=== PATIENT | female | born 1990 | race Caucasian/White ===

== ENCOUNTER 2016-11-29 14:44 | Inpatient (IN) | payer MEDICAID ==
[~2016-11-29] VITALS: Ht 154.9 cm; Wt 58.5 kg
[~2016-11-29 14:44] MED LIST: NAPR550 PO; PREN0.01 PO
[2016-11-29] MEDS ORDERED: LACTATED RINGER'S 1000 ML INJ 1,000 ML IV SCH (15:20)
[2016-11-29] MEDS ORDERED: LACTATED RINGER'S 1000 ML INJ 1,000 ML IV PRN (15:20)
[2016-11-29] MEDS ORDERED: CITRIC ACID-SODIUM CITRATE LIQ 30 ML UDC PO SCH (15:30)
[2016-11-29] MEDS ORDERED: OXYTOCIN 30 UNITS-500ML PREMIX 500 ML IV ONE (15:30)
[2016-11-29] MEDS ORDERED: SODIUM CHLORID 0.9% 500 ML INJ 500 ML IV PRN (15:30)
[2016-11-29] MEDS ORDERED: LIDOCAINE HCL 1% 50 ML VIAL I-DERMAL PRN (15:30)
[2016-11-29] MEDS ORDERED: PENICILLIN G POTASSIUM INJ 5,000,000 UNITS in SODIUM CHLORIDE 0.9% INJ 100 ML IV ONE (15:30)
[2016-11-29] MEDS ORDERED: MINERAL OIL 10 ML VIAL TOPICAL PRN (15:30)
[2016-11-29] MEDS ORDERED: ONDANSETRON HCL 4 MG/2 ML VIAL IV PRN (15:30)
[2016-11-29] MEDS ORDERED: LIDOCAINE HCL 1% 50 ML VIAL INFIL PRN (15:30)
[2016-11-29] MEDS ORDERED: SODIUM CHLOR 0.9% 1000 ML INJ 1,000 ML IV PRN (15:40)
[2016-11-29 15:46] LABS: BACTERIA, URINE OCC /hpf; BLOOD, URINE NEG (NEG); GLUCOSE,URINE NEG (NEG); KETONE, URINE NEG (NEG); MUCUS URINE FEW /lpf (OCC); NITRITE,URINE NEG (NEG); SQUAMOUS EPITHELIAL CELL URINE 1 /hpf (0-5); URINE COLOR YELLOW (YELLW/STRAW)
[2016-11-29 15:47] LABS: COMMENT (UR) CULT NOT INDICATED; CULTURE IF INDICATED CULT NOT INDICATED
--- NOTE | 2016-11-29 15:47 | PD ---
History of Present Illness Date Seen: Nov 29, 2016 History of Present Illness HPI Chief Complaint Pt is a 26 yo with EDC 12-23-2016 based on US EDC at 5 months. Pt presents with contractions. Exam reveals cervix to be dilated 5cm. No ruptured membranes. No vaginal bleeding. Active movements. Date Seen: Nov 29, 2016 Travel History International Travel<30 Days: No Contact w/Intl Traveler<30Days: No History of Present Illness HPI Pt is a 26 yo who presents with contractions. EDC is 12-23-2016 based on 5 month ultrasound. She denies ruptured membranes or vaginal bleeding. Active movements. No fevers. We do have a record of GBS status Para: 2 : 4 Last Menstrual Period: Mar 04, 2016 History Obstetric History Obstetric History 2 previous uncomplicated pregnancies that went to term, and delivered vaginally. This uncomplicated to date. Past Surgical History Surgical History: No Previous Surgery Family History Family History: Negative Social History Alcohol Use: No Tobacco Use: No Substance Abuse: No Allergies-Medications (Allergen,Severity, Reaction): Coded Allergies: No Known Allergies (Unverified , 09/21/13) Home Meds Active Scripts Sulfamethoxazole-Trimethoprim DS (Bactrim DS)1 Tab Tab1 1 PO twice a day #6 Prov:Rudy Wyatt DO 09/21/13 Review of Systems Except as stated in HPI: all other systems reviewed are Neg Physical Exam Narrative GENERAL: Well-nourished, well-developed patient. SKIN: Warm and dry. HEAD: Normocephalic and atraumatic. EYES: No scleral icterus. No injection or drainage. ENT: No nasal drainage noted. Mucous membranes pink. Airway patent. NECK: Supple, trachea midline. No JVD. CARDIOVASCULAR: Regular rate and rhythm without murmurs, gallops, or rubs. RESPIRATORY: Breath sounds equal bilaterally. No accessory muscle use. BREASTS: Bilateral exam showed no masses , no retractions, no nipple discharge. ABDOMEN/GI: Abdomen soft, non-tender, bowel sounds present, no rebound, no guarding Gravid to [-] weeks size Fundal Height: [-] GENITOURINARY: External Genitalia: intact and normal in appearance BUS glands: [-] Cervix: [-] Dilatation: [-] Effacement: [-] Station: [-] Presentation: [-] Membranes: [intact or ruptured] Uterine Contractions: [-] FHT's: Category: [-] Baseline: [-] Reactive: [-] Variability: [-] Decels: [-] EXTREMITIES: No cyanosis or edema. BACK: Nontender without obvious deformity. No CVA tenderness. NEUROLOGICAL: Awake and alert. Motor and sensory grossly within normal limits. Five out of 5 muscle strength in all muscle groups. Normal speech. Data Data Vital Signs Reviewed: Yes [facility] Medical Record Reviewed: Yes Plan Pt is 36 weeks and 4 days, with advanced cervical dilatation. We will admit for labor. We will give GBS prophylaxis in the absence of documented GBS status. Expectant. Pt plans epidural,. Diagnosis Diagnosis: Primary Impression: Intrauterine normal Note Completed By Dr. Brizuela, transferred by Martin Blas MD R1 Nov 29, 2016 15:47
[2016-11-29] MEDS ORDERED: DIPHTH/TETANUS/ACEL PERTUSSIS (BOOSTER) 0.5 ML VIAL/PFS IM ONE ×2 (16:00)
[2016-11-29] MEDS ORDERED: MEASLES, MUMPS, RUBELLA VACCINE 0.5 ML VIAL SQ ONE (16:00)
--- NOTE | 2016-11-29 16:10 | HHI.HP ---
History & Physical H&P History of Present Illness Date Seen: Nov 29, 2016 History of Present Illness HPI Chief Complaint Pt is a 26 yo with EDC 12-23-2016 based on US EDC at 5 months. Pt presents with contractions and reported loss of fluid. Exam reveals cervix to be dilated 5cm. No ruptured membranes. No vaginal bleeding. Active movements. Date Seen: Nov 29, 2016 Travel History International Travel<30 Days: No Contact w/Intl Traveler<30Days: No History of Present Illness HPI Pt is a 26 yo who presents with contractions. EDC is 12-23-2016 based on 5 month ultrasound. She denies ruptured membranes or vaginal bleeding. Active movements. No fevers. We do have a record of GBS status Para: 2 : 4 Last Menstrual Period: Mar 04, 2016 History Obstetric History Obstetric History 2 previous uncomplicated pregnancies that went to term, and delivered vaginally. This uncomplicated to date. Past Surgical History Surgical History: No Previous Surgery Family History Family History: Negative Social History Alcohol Use: No Tobacco Use: No Substance Abuse: No Allergies-Medications (Allergen,Severity, Reaction): Coded Allergies: No Known Allergies (Unverified , 09/21/13) Home Meds Active Scripts Sulfamethoxazole-Trimethoprim DS (Bactrim DS)1 Tab Tab1 1 PO twice a day #6 Prov:Rudy Wyatt DO 09/21/13 Review of Systems Except as stated in HPI: all other systems reviewed are Neg Physical Exam Narrative GENERAL: Well-nourished, well-developed patient. SKIN: Warm and dry. HEAD: Normocephalic and atraumatic. EYES: No scleral icterus. No injection or drainage. ENT: No nasal drainage noted. Mucous membranes pink. Airway patent. NECK: Supple, trachea midline. No JVD. CARDIOVASCULAR: Regular rate and rhythm without murmurs, gallops, or rubs. RESPIRATORY: Breath sounds equal bilaterally. No accessory muscle use. BREASTS: Bilateral exam showed no masses , no retractions, no nipple discharge. ABDOMEN/GI: Abdomen soft, non-tender, bowel sounds present, no rebound, no guarding Gravid to 36 weeks size GENITOURINARY: External Genitalia: intact and normal in appearance Cervix: Midposition Dilatation: 5-6 Effacement: 90 Station: -1 Membranes: Intact Uterine Contractions: Q2-3m FHT's: Category: 1 Baseline: 150 Reactive: + Variability: Moderate Decels: None EXTREMITIES: No cyanosis or edema. BACK: Nontender without obvious deformity. No CVA tenderness. NEUROLOGICAL: Awake and alert. Motor and sensory grossly within normal limits. Five out of 5 muscle strength in all muscle groups. Normal speech. Data Data Vital Signs Reviewed: Yes [facility] Medical Record Reviewed: Yes Plan Ms. Gonzalez is a 26 y/o who is 36 weeks and 4 days presenting with contractions and cervical dilation 1, IUP -Admit for labor. Orders placed -Continue routine OB care -Patient would like epidural anesthesia -Membranes intact with negative amnisure per report 2. GBS status unknown -GBS prophylaxis ordered -Hold off on AROM until treated x2 with Pen G Diagnosis Diagnosis: Primary Impression: Intrauterine normal (Martin Carpenter MD R1) Martin Carpenter MD R1 Nov 29, 2016 16:10 Jemal Brizuela MD Nov 29, 2016 18:48
[2016-11-29 16:38] LABS: AUTOMATED NEUTROPHIL # 6.3 TH/MM3 (1.8-7.7); BASOPHIL % 0.2 % (0.0-2.0); EOSINOPHIL % 0.1 % (0.0-4.0); HEMATOCRIT 37.7 % (35.0-46.0); HEMO FLAGS DIFF FINAL; LYMPH % 21.8 % (9.0-44.0); MEAN CELL VOLUME 88.8 FL (80.0-100.0); MEAN CORPUSCULAR HEMOGLOBIN 29.3 PG (27.0-34.0); MONO % 8.4 % (0.0-8.0); NEUT % 69.5 % (16.0-70.0); PLATELET COUNT 139 TH/MM3 (150-450); RED BLOOD COUNT 4.25 MIL/MM3 (4.00-5.30); WHITE BLOOD COUNT 9.1 TH/MM3 (4.0-11.0)
--- NOTE | 2016-11-29 18:15 | PD.OB.ANTE ---
Subjective Interval History Pt in labor. Making spontaneous cervical change. Pt 8-9cm last check. Uncomfortable with contractions. Objective Lab & Micro Results Test 11/29/16 11/29/16 14:40 15:40 Urine Color YELLOW Urine Turbidity CLEAR Urine pH 7.0 Urine Specific [place] 1.013 Urine Protein NEG mg/dL Urine Glucose (UA) NEG mg/dL Urine Ketones NEG mg/dL Urine Occult Blood NEG Urine Nitrite NEG Urine Bilirubin NEG Urine Urobilinogen LESS THAN 2.0 MG/DL Urine Leukocyte Esterase NEG Urine RBC 1 /hpf Urine WBC LESS THAN 1 /hpf Urine Squamous Epithelial 1 /hpf Cells Urine Bacteria OCC /hpf Urine Mucus FEW /lpf Microscopic Urinalysis Comment CULT NOT INDICATED White Blood Count 9.1 TH/MM3 Red Blood Count 4.25 MIL/MM3 Hemoglobin 12.5 GM/DL Hematocrit 37.7 % Mean Corpuscular Volume 88.8 FL Mean Corpuscular Hemoglobin 29.3 PG Mean Corpuscular Hemoglobin 33.0 % Concent Red Cell Distribution Width 17.0 % Platelet Count 139 TH/MM3 Mean Platelet Volume 11.0 FL Neutrophils (%) (Auto) 69.5 % Lymphocytes (%) (Auto) 21.8 % Monocytes (%) (Auto) 8.4 % Eosinophils (%) (Auto) 0.1 % Basophils (%) (Auto) 0.2 % Neutrophils # (Auto) 6.3 TH/MM3 Lymphocytes # (Auto) 2.0 TH/MM3 Monocytes # (Auto) 0.8 TH/MM3 Eosinophils # (Auto) 0.0 TH/MM3 Basophils # (Auto) 0.0 TH/MM3 CBC Comment DIFF FINAL Differential Comment Blood Type A POSITIVE Band and Hold HOLD CLOT IN BB Physical Exam GENERAL: Well-nourished, well-developed patient. CARDIOVASCULAR: Regular rate and rhythm without murmurs, gallops, or rubs. RESPIRATORY: Breath sounds equal bilaterally. No accessory muscle use. ABDOMEN/GI: Abdomen soft, non-tender. Fundus: [-] GENITOURINARY: External Genitalia: intact and normal in appearance Cervix: [-] Dilatation: [9cm-] Effacement: [-100%]Bulging membranes. AROM done with [place], clear fluid Station: [0 station-] Presentation: [-] Membranes: [-] Uterine Contractions: [-] FHT's: Category: [-] Baseline: [-] Reactive: [-] Variability: [-] Decels: [-] EXTREMITIES: No cyanosis or edema, non-tender, without signs of DVT. Assessment and Plan Assessment and Plan Term labor Imminent delivery. Cervical exam was thin rim , post AROM. Expectant Jemal Brizuela MD Nov 29, 2016 18:14
--- NOTE | 2016-11-29 18:26 | PD.OB.DELI ---
Delivery Date: Nov 29, 2016 Anesthesia: None Episiotomy: None Vaginal Delivery: Normal Presentation: Occiput anterior Nuchal Cord: x1 Delayed cord clamping (45 sec): Yes : Female One Minute : 9 Five Minute : 9 Weight: [id number] Placenta: Spontaneous delivery Additional Information Patient was checked and found to be 8cm dilated with bulging bag. Bag was ruptured and progressed to full dilation. Baby was then precipitously delivered with bed intact. Baby delivered without complication. Nuchal cord x1 which was retracted manually. Cord was clamped and blood was obtained. Placenta was then delivered without complication spontaneously. APGARs 9/9. No vaginal lacerations on exam post delivery. Mom and baby currently resting comfortably in room. SDW: Dr. Alvaro Ansari (Martin Carpenter MD R1) Delivery Date: Nov 29, 2016 Anesthesia: None Episiotomy: None Vaginal Delivery: Precipitous Presentation: Occiput anterior Nuchal Cord: x1 Delayed cord clamping (45 sec): Yes Infant: Female One Minute : 9 Five Minute : 9 Placenta: Spontaneous delivery Laceration: No lacerations (Jemal Brizuela MD) Martin Carpenter MD R1 Nov 29, 2016 18:26 Jemal Brizuela MD Nov 29, 2016 18:42
[2016-11-29] MEDS ORDERED: ACETAMINOPHEN 325 MG TAB PO PRN ×2 (18:30→18:45)
[2016-11-29] MEDS ORDERED: DOCUSATE SODIUM 50 MG/SENNA 8.6 MG TAB PO PRN (18:30)
[2016-11-29] MEDS ORDERED: ZOLPIDEM TARTRATE 5 MG TAB PO PRN (18:30)
[2016-11-29] MEDS ORDERED: SODIUM CHLORIDE 0.9% FLUSH 10 ML FLUSH IV FLUSH PRN ×2 (18:30→18:45)
[2016-11-29] MEDS ORDERED: ALUMINUM/MAGNESIUM/SIMETH 30 ML CUP PO PRN (18:30)
[2016-11-29] MEDS ORDERED: BENZOCAINE 20% TOPICAL SPRAY 60 ML CAN TOPICAL PRN (18:30)
[2016-11-29] MEDS ORDERED: ONDANSETRON ODT 4 MG TAB PO PRN (18:45)
[2016-11-29] MEDS ORDERED: IBUPROFEN 600 MG TAB PO PRN (18:45)
[2016-11-29] MEDS: WITCH HAZEL 50%/GLYCERIN 12.5% 40 PAD JAR TOPICAL PRN (19:28)
[2016-11-29] MEDS: IBUPROFEN 600 MG TAB PO PRN (19:28)
[2016-11-29] MEDS ORDERED: PENICILLIN G POTASSIUM INJ 2,500,000 UNITS in SODIUM CHLORIDE 0.9% INJ 100 ML IV SCH (20:00)
[2016-11-29] MEDS ORDERED: SODIUM CHLORIDE 0.9% FLUSH 10 ML FLUSH IV FLUSH SCH ×2 (21:00)
[2016-11-29 21:53] VITALS: BP 106/69; PULSE 54; RESP 16; TEMP 98.1
[2016-11-30 08:45] VITALS: BP 143/59; PULSE 69; RESP 18; TEMP 98
[2016-11-30] MEDS: WITCH HAZEL 50%/GLYCERIN 12.5% 40 PAD JAR TOPICAL PRN (09:06)
[2016-11-30] MEDS: IBUPROFEN 600 MG TAB PO PRN (09:06)
--- NOTE | 2016-11-30 10:46 | HHI.OB ---
Subjective Post Day: 1 Remarks Pt seen and examined this morning. Of note patient is primarily Hungarian- speaking. day # 1 AFVSS overnight. Decreased lochia. Denies dysuria. No breast tenderness. She is feeding the baby via breast. Appetite good. No nausea or vomiting. Patient endorses bowel movement overnight. Ambulating well. Denies calf pain or shortness of breath. Otherwise, she is doing well this morning and has no other concerns. Objective Vitals/I&O Vital Signs Date Time Temp Pulse Resp B/P Pulse Ox O2 Delivery O2 Flow Rate FiO2 11/30/16 08:45 69 143/59 11/30/16 08:45 98.0 18 11/29/16 21:53 98.1 54 16 106/69 Objective Remarks GENERAL: Well-nourished, well-developed patient. CARDIOVASCULAR: Regular rate and rhythm without murmurs, gallops, or rubs. RESPIRATORY: Breath sounds equal bilaterally. No accessory muscle use. ABDOMEN/GI: Abdomen soft, non-tender. Fundus: Firm, non-tender at umbilicus. GENITOURINARY: Light to moderate bleeding. EXTREMITIES: No cyanosis or edema, non-tender, without signs of DVT. Medications and IVs Current Medications Medications (Trade) Dose Ordered Sig/Johnny Route Start Time Stop Time Status Last Admin Lactated Ringer's 1,000 ml @ 125 mls/hr Q8H IV 11/29/16 15:20 11/29/16 16:00 Lactated Ringer's 1,000 ml @ 3,000 mls/hr Q20M PRN IV 11/29/16 15:20 (NS 1000 ml Inj) 1,000 ml @ 100 mls/hr Q10H PRN IV 11/29/16 15:40 (Zofran Inj) 4 mg Q6H PRN IV 11/29/16 15:30 (fentaNYL INJ) 50 mcg Q1H PRN IV PUSH 11/29/16 15:30 Fentanyl Citrate 100 mcg 100 mcg Q1H PRN IV PUSH 11/29/16 15:30 (Pfizerpen-G Inj/ NS Inj) 100 ml @ 200 mls/hr Q4H IV 11/29/16 20:00 (Muri-Lube Oil) 10 ml UNSCH PRN TOPICAL 11/29/16 15:30 (NS Flush) 2 ml BID IV FLUSH 11/29/16 21:00 (NS Flush) 2 ml UNSCH PRN IV FLUSH 11/29/16 18:30 (Tylenol) 650 mg Q4H PRN PO 11/29/16 18:30 (Motrin) 600 mg Q6H PRN PO 11/29/16 18:30 11/30/16 09:06 (Americaine 20% Top Spr) 1 spray Q4H PRN TOPICAL 11/29/16 18:30 11/29/16 19:27 (Tucks Pads) 1 applic QID PRN TOPICAL 11/29/16 18:30 11/30/16 09:06 (Ara-Colace) 2 tab Q12H PRN PO 11/29/16 18:30 (Ambien) 5 mg HS PRN PO 11/29/16 18:30 (Mag-Al Plus Susp Liq) 15 ml Q8H PRN PO 11/29/16 18:30 (NS Flush) 2 ml BID IV FLUSH 11/29/16 21:00 (NS Flush) 2 ml UNSCH PRN IV FLUSH 11/29/16 18:45 (Tylenol) 650 mg Q4H PRN PO 11/29/16 18:45 (Motrin) 600 mg Q6H PRN PO 11/29/16 18:45 (Zofran Odt) 4 mg Q6H PRN PO 11/29/16 18:45 Assessment/Plan Assessment and Plan 26y/o female who is day # 1 s/p spontaneous vaginal delivery. -Continue routine care. -Motrin PRN pain. -Encouraged OOB. Advised pelvic rest for 6 wks. -Re: ctrl, we will discuss tomorrow prior to discharge. -Anticipate discharge tomorrow, 12/01. martina Brizuela MD Discharge Planning Likely tomorrow, 12/01 Martin Carpenter MD R1 Nov 30, 2016 10:46
[2016-11-30 19:25] VITALS: BP 114/80; PULSE 56; RESP 16; TEMP 98.2
[2016-12-01] MEDS ORDERED: IBUP-232 PO (06:40)
--- NOTE | 2016-12-01 06:41 | HHI.DCPOC ---
Discharge Care Plan Diagnosis: (1) Normal vaginal delivery Report Symptoms to Your Doctor -Temperature above 100.5 degrees -Redness, of incision or excessive or foul smelling drainage -Unusual pain or calf pain -Increased vaginal bleeding -Painful or difficulty urinating -Feelings of extreme sadness or anxiety after 2 weeks Goals to Promote Your Health * To prevent worsening of your condition and complications * To maintain your health at the optimal level Directions to Meet Your Goals Take your medications as prescribed Follow your dietary instruction Follow activity as directed Ensure plenty of rest for recovery Drink fluids for hydration Keep your appointments as scheduled Take your immunizations and boosters as scheduled If your symptoms worsen call your PCP, if no PCP go to Urgent Care Center or Emergency Room Smoking is Dangerous to Your Health. Avoid second hand smoke Call the 24-hour crisis hotline for domestic abuse at Robert Watson MD R1 Dec 01, 2016 06:41
[2016-12-01 08:10] VITALS: BP 101/70; PULSE 55; RESP 16; TEMP 97.8
--- NOTE | 2016-12-01 09:06 | HHI.OB ---
Subjective Post Day: 2 Remarks 26 year old female s/p at 38/6 wks gestation, PPD 2. AFVSS. Patient reports she is feeling well. Bleeding is decreasing and pain is well- controlled. She is formula feeding and bonding well with baby. Ambulating without difficulties. She is tolerating a diet without nausea or vomiting. She has had a bowel movement. She has passed gas. Denies chest pain, dysuria, shortness of breath, or calf pain. Objective Vitals/I&O Vital Signs Date Time Temp Pulse Resp B/P Pulse Ox O2 Delivery O2 Flow Rate FiO2 11/30/16 19:25 98.2 56 16 11/30/16 19:25 114/80 Objective Remarks GENERAL: Well-nourished, well-developed patient. CARDIOVASCULAR: Regular rate and rhythm without murmurs, gallops, or rubs. RESPIRATORY: Breath sounds equal bilaterally. No accessory muscle use. ABDOMEN/GI: Abdomen soft, non-tender. Fundus: Firm, non-tender at umbilicus. GENITOURINARY: Light to moderate bleeding. EXTREMITIES: No cyanosis or edema, non-tender, without signs of DVT. Medications and IVs Current Medications Medications (Trade) Dose Ordered Sig/Johnny Route Start Time Stop Time Status Last Admin Lactated Ringer's 1,000 ml @ 125 mls/hr Q8H IV 11/29/16 15:20 11/29/16 16:00 Lactated Ringer's 1,000 ml @ 3,000 mls/hr Q20M PRN IV 11/29/16 15:20 (NS 1000 ml Inj) 1,000 ml @ 100 mls/hr Q10H PRN IV 11/29/16 15:40 (Zofran Inj) 4 mg Q6H PRN IV 11/29/16 15:30 (fentaNYL INJ) 50 mcg Q1H PRN IV PUSH 11/29/16 15:30 (fentaNYL INJ) 100 mcg Q1H PRN IV PUSH 11/29/16 15:30 (Muri-Lube Oil) 10 ml UNSCH PRN TOPICAL 11/29/16 15:30 (NS Flush) 2 ml BID IV FLUSH 11/29/16 21:00 (NS Flush) 2 ml UNSCH PRN IV FLUSH 11/29/16 18:30 (Tylenol) 650 mg Q4H PRN PO 11/29/16 18:30 (Motrin) 600 mg Q6H PRN PO 11/29/16 18:30 11/30/16 09:06 ([place] 20% Top Spr) 1 spray Q4H PRN TOPICAL 11/29/16 18:30 11/29/16 19:27 (Tucks Pads) 1 applic QID PRN TOPICAL 11/29/16 18:30 11/30/16 09:06 (Ara-Colace) 2 tab Q12H PRN PO 11/29/16 18:30 (Ambien) 5 mg HS PRN PO 11/29/16 18:30 (Mag-Al Plus Susp Liq) 15 ml Q8H PRN PO 11/29/16 18:30 (NS Flush) 2 ml BID IV FLUSH 11/29/16 21:00 (NS Flush) 2 ml UNSCH PRN IV FLUSH 11/29/16 18:45 (Tylenol) 650 mg Q4H PRN PO 11/29/16 18:45 (Motrin) 600 mg Q6H PRN PO 11/29/16 18:45 (Zofran Odt) 4 mg Q6H PRN PO 11/29/16 18:45 Assessment/Plan Assessment and Plan 26y/o female who is day # 2 s/p spontaneous vaginal delivery. -Continue routine care. -Motrin PRN pain. -Encouraged OOB. Advised pelvic rest for 6 wks. -Re: ctrl, she will discuss with her [employer], may decide on getting Depo- Provera prior to D/C - Discharge home today Robert Watson MD R1 Dec 01, 2016 09:05
== END 2016-12-01 11:57 | disposition home or self-care (01) | DRG 775 ==
LOC: HOBED 14:44 → H2EB 15:13 → H1EA 19:16
PROVIDERS: ADMIT Obstetrics & Gynecology; ATTEND Obstetrics & Gynecology
PROC: 10E0XZZ Delivery of Products of Conception, External Approach (ICD-10-PCS; principal; 2016-11-29)
DX: O60.14X0 Preterm labor third trimester with preterm delivery third trimester, not applicable or unspecified (principal); O69.81X0 Labor and delivery complicated by cord around neck, without compression, not applicable or unspecified; Z37.0 Single live birth; Z3A.36 36 weeks gestation of pregnancy
CPT/HCPCS: 81001; 84112; 85025; 86900; 86901; J2540; J7120